=== PATIENT | male | born 1965 | race Hispanic/Latino ===

== ENCOUNTER 2017-08-10 16:34 | Emergency (ER) | payer BC ==
[2017-08-10] MEDS ORDERED: CATAPRES PO ONE (16:48)
--- NOTE | 2017-08-10 18:37 | Emergency Department Report ---
Blank Doc - Documentation Documentation: Patient is a 51-year-old male who is presenting with left facial droop. Patient states this started last night he also has had some mild confusion was not feeling well. Patient's blood pressure was elevated higher than his norm. Patient is over 500 pounds and cannot fit in our CT scanner. 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 He is atypical and the fact that he is having some mild confusion as well. Patient should be evaluated in the main area.
[2017-08-10 18:58] LABS: Basophils # (Auto) 0.1 K/mm3 (0.0-0.1); Basophils % (Auto) 0.6 % (0.0-1.8); Eosinophils # (Auto) 0.3 K/mm3 (0.0-0.4); Eosinophils % (Auto) 2.7 % (0.0-4.3); Hematocrit 43.1 % (35.5-45.6); Hemoglobin 14.4 gm/dl (11.8-15.2); Lymphocytes # (Auto) 2.6 K/mm3 (1.2-5.4); Lymphocytes % (Auto) 21.6 % (13.4-35.0); Mean Corpuscular HGB Conc 34 % (32-34); Mean Corpuscular Hemoglobin 29 pg (28-32); Mean Corpuscular Volume 87 fl (84-94); Monocytes % (Auto) 8.3 % (0.0-7.3); Platelet Count 203 K/mm3 (140-440); Red Blood Count 4.95 M/mm3 (3.65-5.03); Red Cell Distribution Width 14.5 % (13.2-15.2)
[2017-08-10 19:17] LABS: INR 0.92 (0.87-1.13)
[2017-08-10 19:18] LABS: Partial Thromboplastin Time 31.6 Sec. (24.2-36.6)
[2017-08-10] MEDS ORDERED: APRESOLINE IM ONE (19:20)
[2017-08-10 19:21] LABS: Alanine Aminotransferase 36 units/L (7-56); Albumin 3.7 g/dL (3.9-5); BUN/Creatinine Ratio 14; Blood Urea Nitrogen 10 mg/dL (9-20); Calcium 8.9 mg/dL (8.4-10.2); Hemolysis Index 5
--- NOTE | 2017-08-10 20:04 | Emergency Department Report ---
ED Neuro Deficit HPI - General Chief Complaint: Neuro Symptoms/Deficit Stated Complaint: FACIAL DROOPING Time Seen by Provider: 08/10/17 17:09 Source: patient, family, RN notes reviewed Mode of arrival: Ambulatory Limitations: No Limitations - History of Present Illness Initial Comments: Primary care DrClay: Dr. romero This is a 51-year-old male who was previously unknown to this provider. He does not have any medical problems that he is aware of. He is sent to the ER by his doctor to rule out a stroke. Patient has a complaint of nontraumatic painless left-sided facial droop which started last night. It is constant, does not radiate anywhere, does not have exacerbating or relieving factors. He also describes dull aching throbbing left-sided nontraumatic neck pain which started last night, which he typically does not have. His endorses intermittent confusion. Patient does not recall this. He denies headache, chest pain, abdominal pain, shortness of breath, urinary symptoms, weakness, numbness, ataxia. -: Last night Location: left face, altered Presenting Symptoms: Present: Facial Droop/Numbness, Altered Mental Status. Absent: Weak/Paralyzed One Side, Sudden, Severe Headache, Blurred/Loss of Vision , Unable to Speak Clearly History of same: No Place: home Severity: moderate Improves With: none Worsens With: none On Anticoagulants: No Context: other (as per history of present illness) Associated Symptoms: confusion (as per patient's ), other (as per history of present illness). denies: chest pain, cough, diaphoresis, fever/chills, headaches, loss of appetite, malise, nausea/vomiting, vertigo, seizures, shortness of breath, syncope, weakness - Related Data Allergies/Adverse Reactions: Allergies Allergy/AdvReac Type Severity Reaction Status Date / Time No Known Allergies Allergy Unverified 08/10/17 16:48 ED Review of Systems ROS: Stated complaint: FACIAL DROOPING Other details as noted in HPI Comment: All other systems reviewed and negative ED Past Medical Hx - Past Medical History Hx Hypertension: Yes Hx CVA: No Hx Congestive Heart Failure: Yes Hx Diabetes: No Hx Arthritis: No Hx Seizures: No Hx Asthma: No Additional medical history: obesity, DVT - Surgical History Additional Surgical History: left elbow - Social History Smoking Status: Former Smoker Substance Use Type: Alcohol ED Neuro Physical Exam - General Limitations: No Limitations General appearance: alert, in no apparent distress Suspected Stroke: Yes - Head Head exam: Present: atraumatic, normocephalic - Eye Eye exam: Present: normal appearance, PERRL, EOMI, other (visual acuity intact to finger counting, color perception, reading at a close distance). Absent: nystagmus - ENT ENT exam: Present: normal exam, normal orophraynx, mucous membranes moist, normal external ear exam - Neck Neck exam: Present: normal inspection, full ROM, other (there is no carotid bruit. There is no expansile hematoma.) - Respiratory Respiratory exam: Present: normal lung sounds bilaterally. Absent: respiratory distress, chest wall tenderness - Cardiovascular Cardiovascular Exam: Present: regular rate, normal rhythm, normal heart sounds. Absent: systolic murmur, diastolic murmur, rubs, gallop - GI/Abdominal GI/Abdominal exam: Present: soft, normal bowel sounds. Absent: distended, tenderness, guarding, rebound, rigid, pulsatile mass - Rectal Rectal exam: Present: deferred - Extremities Exam Extremities exam: Present: normal inspection, full ROM - Back Exam Back exam: Present: normal inspection, full ROM. Absent: tenderness, CVA tenderness (R), paraspinal tenderness, vertebral tenderness - Neurological Exam Neurological exam: Present: alert, oriented X3, CN II-XII intact, normal gait, other (Extraocular movements intact. Tongue midline. No facial droop. Facial sensation intact to light touch in the V1, V2, V3 distribution bilaterally. 5 and 5 strength in 4 extremities.. Sensation is intact to light touch in 4 extremities.). Absent: motor sensory deficit - NIHSS Assessment Interval: Baseline 1a. Level of Consciousness: alert 1b. LOC Questions: answers correctly 1c. LOC Commands: performs tasks correctly 2. Best Gaze: normal 3. Visual: no visual loss 4. Facial Palsy: complete paralysis 5b. Motor Arm Right: no drift 5a. Motor Arm Left: no drift 6a. Motor Leg Left: no drift 6b. Motor Leg Right: no drift 7. Limb Ataxia: absent 8. Sensory: normal 9. Best Language: no aphasia 10. Dysarthria: normal 11. Extinction/Inattention: no abnormality Total Score: 3 Stroke Severity: Minor Stroke - Psychiatric Psychiatric exam: Present: normal affect, normal mood - Skin Skin exam: Present: warm, dry, intact, normal color. Absent: rash ED Course Vital Signs 08/10/17 08/10/17 08/10/17 16:45 17:11 18:30 Temperature 98 F Pulse Rate 89 89 75 Respiratory 18 20 Rate Blood Pressure 196/97 196/97 Blood Pressure 190/85 [Left] O2 Sat by Pulse 96 98 Oximetry 08/10/17 21:04 Temperature 99.1 F Pulse Rate 72 Respiratory 18 Rate Blood Pressure Blood Pressure 148/63 [Left] O2 Sat by Pulse 96 Oximetry - Lab Data Result diagrams: 08/10/17 18:45 08/10/17 18:45 Lab Results 08/10/17 08/10/17 08/10/17 Range/Units 18:45 18:45 18:45 WBC 11.9 H (4.5-11.0) K/mm3 RBC 4.95 (3.65-5.03) M/mm3 Hgb 14.4 (11.8-15.2) gm/dl Hct 43.1 (35.5-45.6) % MCV 87 (84-94) fl MCH 29 (28-32) pg MCHC 34 (32-34) % RDW 14.5 (13.2-15.2) % Plt Count 203 (140-440) K/mm3 Lymph % (Auto) 21.6 (13.4-35.0) % [place] % (Auto) 8.3 H (0.0-7.3) % Eos % (Auto) 2.7 (0.0-4.3) % Baso % (Auto) 0.6 (0.0-1.8) % Lymph # 2.6 (1.2-5.4) K/mm3 [place] # 1.0 H (0.0-0.8) K/mm3 Eos # 0.3 (0.0-0.4) K/mm3 Baso # 0.1 (0.0-0.1) K/mm3 Seg Neutrophils % 66.8 (40.0-70.0) % Seg Neutrophils # 7.9 H (1.8-7.7) K/mm3 PT 12.8 (12.2-14.9) Sec. INR 0.92 (0.87-1.13) APTT 31.6 (24.2-36.6) Sec. Sodium 136 L (137-145) mmol/L Potassium 4.0 (3.6-5.0) mmol/L Chloride 95.8 L (98-107) mmol/L Carbon Dioxide 26 (22-30) mmol/L Anion Gap 18 mmol/L BUN 10 (9-20) mg/dL Creatinine 0.7 L (0.8-1.5) mg/dL Estimated GFR > 60 ml/min BUN/Creatinine Ratio 14 % Glucose 108 H (75-100) mg/dL Calcium 8.9 (8.4-10.2) mg/dL Total Bilirubin 0.50 (0.1-1.2) mg/dL AST 30 (5-40) units/L ALT 36 (7-56) units/L Alkaline Phosphatase 76 (35-129) units/L Total Protein 7.4 (6.3-8.2) g/dL Albumin 3.7 L (3.9-5) g/dL Albumin/Globulin Ratio 1.0 % Vital Signs 08/10/17 08/10/17 08/10/17 16:45 17:11 18:30 Temperature 98 F Pulse Rate 89 89 75 Respiratory 18 20 Rate Blood Pressure 196/97 196/97 Blood Pressure 190/85 [Left] O2 Sat by Pulse 96 98 Oximetry 08/10/17 21:04 Temperature 99.1 F Pulse Rate 72 Respiratory 18 Rate Blood Pressure Blood Pressure 148/63 [Left] O2 Sat by Pulse 96 Oximetry - EKG Data -: EKG Interpreted by Vt 08/10/17 21:38 Sinus, 72 bpm, normal axis, not consistent with STEMI, not having chest pain. Poor R-wave progression. - Medical Decision Making Differential diagnosis, including not limited to: Stroke, Morataya's palsy, carotid dissection Assessment and plan: 51-year-old male with neck pain, resolved confusion, left- sided facial droop with forehead involvement. Needs imaging to rule out ischemic/hemorrhagic stroke, and carotid dissection. The patient's weight and body habitus precluded acquisition of diagnostic imaging at this hospital. He will therefore be transferred to a facility that can accommodate the patient' s body habitus. The patient is not on aspirin or tPA candidate because we do not know if he has a dissection or intracranial hemorrhage. On a similar note, the patient is not a thrombolysis candidate because he presented with symptoms began more than 4.5 hours prior to presentation. Case was presented to ER physician at [facility]; Dr Yeager accepts as an er to er transfer The case was also discussed with the patient's primary care doctor and he was updated on the patient's status. This was also discussed with the patient and his who were amenable to transfer. - Core Measures Measure Exclusions: not indicated - Thrombolytic Inclusion/Exclusion Thrombolytic Exclusion Criteria: Symptom Onset > 3 Hours Critical care attestation.: If time is entered above; I have spent that time in minutes in the direct care of this critically ill patient, excluding procedure time. ED Disposition Clinical Impression: Facial droop, Elevated blood pressure reading Disposition: DC/TX-[id number] ANOTHER TYPE HLTHCARE Is pt being admited?: No Does the pt Need Aspirin: No Condition: Good Referrals: BIGG FARRIS MD [Primary Care Provider] - 3-5 Days
[2017-08-10 23:23] VITALS: BP 161/79
== END 2017-08-10 23:24 | disposition other institution (70) ==
LOC: ED 16:34
DX: R29.810 Facial weakness (principal); I11.0 Hypertensive heart disease with heart failure; I50.9 Heart failure, unspecified; Z87.891 Personal history of nicotine dependence
CPT/HCPCS: 36415; 80053; 85025; 85610; 85730; 93005; 93010; 96372; 99285; J0360